=== PATIENT | female | born 1985 | race Caucasian/White ===

== ENCOUNTER 2019-05-09 07:14 | Observation (INO) | payer BC, OTHER ==
[~2019-05-09] VITALS: Ht 157.5 cm; Wt 68.0 kg
[2019-05-09] VITALS (11 sets, daily range): BP systolic 102–115; BP diastolic 63–75
[~2019-05-09 07:14] MED LIST: NUVA RING
--- NOTE | 2019-05-09 07:18 | ER Report ---
History and Physical Time Seen By MD: 07:14 HPI/ROS CHIEF COMPLAINT: Left-sided abdominal pain HISTORY OF PRESENT ILLNESS: Patient is a 33-year-old female here with complaints of left-sided abdominal pain, nausea, vomiting, diarrhea since last night at approximately 2000 hrs. Patient reports that she has been unable to keep down food or fluids this morning. Describes worsening pain especially in the left abdomen in the upper and lower quadrants. Patient does report having history of an ectopic , 2 C-sections but denies other abdominal surgeries. Patient is afebrile, hemodynamically stable at time of evaluation. REVIEW OF SYSTEMS: Constitutional: No fever, no chills. Eyes: No discharge. ENT: No sore throat. Cardiovascular: No chest pain, no palpitations. Respiratory: No cough, no shortness of breath. Gastrointestinal: + Left sided abdominal pain, + nausea and vomiting. Genitourinary: No hematuria. Musculoskeletal: No back pain. Skin: No rashes. Neurological: No headache. Allergies: Coded Allergies: No Known Drug Allergies (Verified , 04/30/10) Home Meds Reported Medications [Nuva Ring] No Conflict Check, 0 Refills 04/30/10 Hx Substance Use Disorder: No Hx Alcohol Use: Yes (OCC) Constitutional Vital Sign - Last 24 Hours 05/09/19 07:17 Temp 97.8 Pulse 79 Resp 16 B/P (MAP) 113/74 Pulse Ox 95 O2 Delivery Room Air Physical Exam General Appearance: The patient is alert, has no immediate need for airway protection and no signs of toxicity. Uncomfortable appearing Eyes: Pupils equal and round no pallor or injection. ENT, Mouth: Mucous membranes are moist. Respiratory: There are no retractions, lungs are clear to auscultation. Cardiovascular: Regular rate and rhythm. Gastrointestinal: Abdomen is soft. Tender in the left upper and left lower quadrants, no rebound or guarding Neurological: No focal neurological deficits, cranial nerves intact Skin: Warm and dry, no rashes. Musculoskeletal: Neck is supple non tender. Extremities are nontender, nonswollen and have full range of motion. DIFFERENTIAL DIAGNOSIS: After history and physical exam differential diagnosis was considered for abdominal pain including but not limited to appendicitis, cholecystitis, gastritis and urinary tract infection. Medical Decision Making Data Points Result Diagram: 05/09/19 0725 05/09/19 0725 Laboratory Hematology Test 05/09/19 07:25 White Blood Count 13.8 k/uL (4.5-11.0) H Red Blood Count 4.48 M/uL (4.17-5.56) Hemoglobin 13.1 g/dL (12.0-16.0) Hematocrit 38.3 % (34.0-47.0) Mean Corpuscular Volume 85.6 fL (80.0-96.0) Mean Corpuscular Hemoglobin 29.3 pg (26.0-33.0) Mean Corpuscular Hemoglobin Concent 34.2 g/dL (32.0-36.0) Red Cell Distribution Width 14.4 % (11.5-14.5) Platelet Count 286 K/uL (150-450) Mean Platelet Volume 7.7 fL (7.2-11.1) Neutrophils (%) (Auto) 83.9 % (39.4-72.5) H Lymphocytes (%) (Auto) 11.9 % (17.6-49.6) L Monocytes (%) (Auto) 4.0 % (4.1-12.4) L Eosinophils (%) (Auto) 0.0 % (0.4-6.7) L Basophils (%) (Auto) 0.2 % (0.3-1.4) L Nucleated RBC Relative Count (auto) 0.0 /100WBC Neutrophils # (Auto) 11.6 K/uL (2.0-7.4) H Lymphocytes # (Auto) 1.6 K/uL (1.3-3.6) Monocytes # (Auto) 0.6 K/uL (0.3-1.0) Eosinophils # (Auto) 0.0 K/uL (0.0-0.5) Basophils # (Auto) 0.0 K/uL (0.0-0.1) Nucleated RBC Absolute Count (auto) 0.01 K/uL Chemistry Test 05/09/19 07:25 Sodium Level 133 mmol/L (137-145) Potassium Level 4.1 mmol/L (3.5-5.0) Chloride Level 99 mmol/L (98-107) Carbon Dioxide Level 22 mmol/L (22-31) Blood Urea Nitrogen 11 mg/dl (7-18) Creatinine 0.70 mg/dl (0.52-1.04) Glomerular Filtration Rate Calc > 60.0 Random Glucose 118 mg/dl (75-110) Calcium Level 9.0 mg/dl (8.4-10.2) Total Bilirubin 0.6 mg/dl (0.2-1.3) Aspartate Amino Transf (AST/SGOT) 25 U/L (0-35) Alanine Aminotransferase (ALT/SGPT) 29 U/L (0-56) Alkaline Phosphatase 153 U/L (0-126) Total Protein 7.6 g/dl (6.3-8.2) Albumin 4.4 g/dl (3.5-5.0) Lipase 112 U/L (23-300) Human Chorionic Gonadotropin, Qual Negative (NEGATIVE) EKG/Imaging Imaging PATIENT NAME: Jahaira Sebastian : 1985 MR: [id number] V: [id number] EXAM DATE: ORDERING PHYSICIAN: DARIEL WIN TECHNOLOGIST: Location: [facility] Patient: Jahaira Sebastian : 1985 Visit/Account:[id number] Date of Sevice: 05/09/2019 CT ABDOMEN PELVIS W/ CON HISTORY:left sided abd pain TECHNIQUE: CT abdomen and pelvis with intravenous contrast. Contiguous axial images of the abdomen and pelvis was performed from the lung bases to the symphysis pubis. One of the following dose optimization techniques was utilized in the performance of this exam: Automated exposure control; adjustment of the mA and/or kV according to the patient's size; or use of an iterative reconstruction technique. Specific details can be referenced in the facility's radiology CT exam operational policy. CONTRAST: 75 cc of Isovue-370 COMPARISON: None. FINDINGS: Visualized lung bases: Negative. Hepatobiliary: 8mm hypodensity segment 8 of the liver image 25 may represent a small cyst or hemangioma but is too small to characterize. There is fatty infiltration of the liver. Spleen: Negative. Adrenals: Negative. Kidneys/: Negative. Pancreas: Negative. GI: Appendix is dilated measures 11 mm with mild periappendiceal inflammatory changes suggesting appendicitis. No definitive rupture. Radiopaque appendicolith is noted in the orifice of the appendix. Small amount of fluid adjacent to the cecum is noted and there is trace free fluid in the deep pelvis. Vessels/spaces/nodes: Negative. Bones/soft tissues: Negative. IMPRESSION: 1. Acute appendicitis without evidence for rupture. Results were called to DARIEL WIN at 05/09/2019 8:47 AM. Report Dictated By: Colton Lentz MD at 05/09/2019 8:39 AM Report E-Signed By: Colton Lentz MD at 05/09/2019 8:47 AM WSN:[id number] ED Course/Re-evaluation ED Course Patient is a 33-year-old female here with complaints of left upper and left lower quadrant abdominal pain. Patient reports that symptom onset was approximately 1999 last night with associated nausea, vomiting, diarrhea. Patient denies other medical problems or taking other medications. CT imaging was consistent with appendicitis, patient did have a leukocytosis. Patient was given IV fluids, analgesics with significant improvement in symptoms. I discussed the patient with Dr. Fong with surgery. Patient was stable at time of admission. Decision to Disposition Date: May 09, 2019 Decision to Disposition Time: 09:04 Depart Departure Latest Vital Signs Vital Signs Date Time Temp Pulse Resp B/P (MAP) Pulse Ox O2 Delivery O2 Flow Rate FiO2 05/09/19 07:17 97.8 79 16 113/74 95 Room Air Impression: Primary Impression: Appendicitis Condition: Improved Disposition: Admitted from ER Referrals: KIP MANDUJANO CNM (PCP) DARIEL WIN DO May 09, 2019 07:18
[2019-05-09] MEDS ORDERED: NS(*) 0.9% 1000 ML BAG 1,000 ML IV ONE (07:34)
[2019-05-09] MEDS ORDERED: ONDANSETRON 4 MG/2 ML VIAL IVP ONE ×2 (07:35→08:45)
[2019-05-09] MEDS ORDERED: fentaNYL CITR 100 MCG/2 ML AMP IVP ONE ×2 (07:35→08:55)
[2019-05-09 07:42] LABS: PLATELET COUNT, AUTOMATED 286 K/uL (150-450)
[2019-05-09] MEDS ORDERED: IOPAMIDOL 76% 100 ML INFUS BTL 100 ML ONE (08:11)
--- NOTE | 2019-05-09 08:55 | RADIOLOGY IMAGING REPORT ---
[place] [facility] [place] Jahaira Sebastian : 1985 MR: [id number] V: [id number] EXAM DATE: ORDERING PHYSICIAN: DARIEL WIN TECHNOLOG[place]: [place] [facility] [place]: [place]aira [place] : 1985 Visit/Account:[id number] Date of Sevice: 05/09/2019 CT ABDOMEN PELVIS W/ CON HISTORY:left sided abd pain TECHNIQUE: CT abdomen and pelvis with intravenous contrast. Contiguous axial images of the abdomen and pelvis was performed from the lung bases to the symphysis pubis. One of the following dose optimization techniques was utilized in the performance of this exam: Autom ated exposure control; adjustment of the mA and/or kV according to the patient's size; or use of an i terative reconstruction technique. Specific details can be referenced in the facility's radiology C T exam operational policy. CONTRAST: 75 cc of Isovue-370 COMPARISON: None. FINDINGS: Visualized lung bases: Negative. Hepatobiliary: 8mm hypodensity segment 8 of the liver image 25 may represent a small cyst or hemangi corona but is too small to characterize. There is fatty infiltration of the liver. Spleen: Negative. Adrenals: Negative. Kidneys/: Negative. Pancreas: Negative. GI: Appendix is dilated measures 11 mm with mild periappendiceal inflammatory changes suggesting vicente endicitis. No definitive rupture. Radiopaque appendicolith is noted in the orifice of the appendix. S mall amount of fluid adjacent to the cecum is noted and there is trace free fluid in the deep pelvis. Vessels/spaces/nodes: Negative. Bones/soft tissues: Negative. IMPRESSION: 1. Acute appendicitis without evidence for rupture. Results were called to DARIEL WIN at 05/09/2019 8:47 AM. Report Dictated By: Colton Lentz MD at 05/09/2019 8:39 AM Report E-Signed By: Colton Lentz MD at 05/09/2019 8:47 AM WSN:[id number]
--- NOTE | 2019-05-09 09:40 | Gen Surgery H&P BLANK ---
GENERAL SURGERY H&P BLANK CC: ABD pain HPI: 33 yo female with 12 hour hx RLQ abd pain. Pain is constant and severe. + NV. CT reveals acute appendicitis. PMH: negative PSH: C section MEDS: noted NKDA PE: AAOX$. NAD. Chest CTA.RRR. ABD tender RLQ with + peritoneal s/s. LABS: WBC elevated, HCG negative A/P: Acute appendicitis. Pt recommended to undergo laparoscopic, possible open, appendectomy. Proc, risks, benefits discussed with pt at bedside. She understands risk of bleeding, perforation, damage to viscera, postoperative abscess, need for secondary intervention, cardiopulm complication. All questions answered and informed consent signed. Venous Thromboembolism VTE Risk Physician Assess for VTE Risk: Yes Patient's VTE Risk: Low VTE Diagnostic Test 2 Days Prior to Admit: No Antithrombotics Is Pt On Any Antithrombotics?: No CIARA MOTA MD May 09, 2019 09:40
[2019-05-09] MEDS ORDERED: HYDROMORPHONE HCL 1 MG/ML SYRINGE IVP ONE (10:15)
[2019-05-09] MEDS ORDERED: METOCLOPRAMIDE 10 MG/2 ML SDV IVP ONE (10:15)
[2019-05-09] MEDS ORDERED: LR(*) 1000 ML BAG 1,000 ML IV PRN (10:30)
[2019-05-09] MEDS ORDERED: MORPHINE 4 MG/ML SDV IVP PRN (10:30)
[2019-05-09] MEDS ORDERED: PIPERACILLIN/TAZO*3.375GM VIAL 3.375 GM in NS(*) 0.9% 100 ML MINI-BAG 100 ML IVPB ONE (10:30)
[2019-05-09] MEDS ORDERED: PREN-127 PO (10:41)
[2019-05-09] MEDS ORDERED: FAMOTIDINE 20 MG TAB PO ONE (11:40)
[2019-05-09] MEDS: ONDANSETRON 4 MG/2 ML VIAL IVP PRN ×2 (12:01→18:09)
[2019-05-09] MEDS: MORPHINE 4 MG/ML SDV IVP PRN ×2 (15:58→18:09)
[2019-05-09] MEDS ORDERED: NORMOSOL R SOLN(*) 1000 ML BAG 1,000 ML IV ONE (16:30)
[2019-05-09] MEDS ORDERED: PIPERACILLIN/TAZO*3.375GM VIAL 3.375 GM in NS(*) 0.9% 100 ML MINI-BAG 100 ML IVPB SCH (16:30)
[2019-05-09] MEDS: PIPERACILLIN/TAZO*3.375GM VIAL 3.375 GM in NS(*) 0.9% 100 ML MINI-BAG 100 ML IVPB SCH ×2 (16:32→22:16)
[2019-05-09] MEDS ORDERED: fentaNYL CITR 250 MCG/5 ML AMP ONE (17:34)
[2019-05-09] MEDS ORDERED: LIDOCAINE 2% IV 100 MG/5ML SYR ONE (17:35)
[2019-05-09] MEDS ORDERED: PROPOFOL EMUL(*) 10MG/ML 20 ML 20 ML ONE (17:35)
[2019-05-09] MEDS ORDERED: ROCURONIUM BR 10 MG/ML 5 ML SY 5 ML ONE (17:36)
[2019-05-09] MEDS ORDERED: BUPIVACAIN 0.25% INJ 50ML VIAL ONE (19:03)
[2019-05-09] MEDS ORDERED: DEXAMETHASONE SOD 4 MG/ML VIAL ONE (19:20)
[2019-05-09] MEDS ORDERED: ONDANSETRON 4 MG/2 ML VIAL ONE (19:21)
[2019-05-09] MEDS ORDERED: fentaNYL CITR 100 MCG/2 ML AMP ONE ×2 (19:57→20:36)
[2019-05-09] MEDS ORDERED: SUGAMMADEX SOD 200 MG/2 ML SDV ONE (19:58)
--- NOTE | 2019-05-09 20:00 | Antimicrobial Stewardship ---
Antimicrobial Stewardship Empiricly appropriate: Yes (On Zosyn for appendicitis) Renal/Hepatic dosing: Yes Reviewed for Drug Interaction: Yes Monitored for Toxicities: Yes Comment Appendectomy this afternoon. Determine cumulative duration: individualized WILIAM POLLACK May 09, 2019 20:00
--- NOTE | 2019-05-09 20:41 | Post Operative Progress Note ---
Post Operative Progress Note Date: May 09, 2019 Time: 20:30 Surgeon: Ciara Fong MD Assignment Editor: Akil Montague RN Anesthesia: GETA Pre-Op Diagnosis: acute appendicitis Post-Op Diagnosis: same Findings: acute suppurative appendicitis, retrocecal Procedure(s): laparoscopic appendectomy Specimen Removed:(May be N/A): appendix Complications: none Total Tourniquet Time: NA Splint: NA Fluids: see anesthesia record Estimated Blood Loss: < 50 ml Date OP Note Dictated: May 09, 2019 Time OP Note Dictated: 20:32 (Dict #[id number]) CIARA FONG MD May 09, 2019 20:41
[2019-05-09] MEDS ORDERED: KCL/D1/2NS 20 MEQ 1000 ML 1,000 ML IV SCH (20:45)
[2019-05-09] MEDS ORDERED: ACETAMINOPHEN 500 MG TAB PO PRN (20:45)
[2019-05-09] MEDS ORDERED: ACETAMINOPHEN(*)1000 MG/100 ML 100 ML IVPB ONE (20:53)
[2019-05-09] MEDS ORDERED: NS(*) 0.9% 250 ML BAG 250 ML ONE (22:07)
[2019-05-09] MEDS: APAP/HYDROCODONE 325/5 TAB PO PRN (23:08)
[2019-05-10] VITALS: BP 96/59
[2019-05-10 00:30] VITALS: BP 122/113
[2019-05-10 01:00] VITALS: BP 105/67
[2019-05-10 02:00] VITALS: BP 94/60
[2019-05-10] MEDS: MORPHINE 4 MG/ML SDV IVP PRN (03:46)
[2019-05-10 03:52] VITALS: BP 105/67
[2019-05-10] MEDS: PIPERACILLIN/TAZO*3.375GM VIAL 3.375 GM in NS(*) 0.9% 100 ML MINI-BAG 100 ML IVPB SCH ×2 (03:58→10:19)
[2019-05-10] MEDS: APAP/HYDROCODONE 325/5 TAB PO PRN ×2 (05:33→11:48)
[2019-05-10 07:22] VITALS: BP 99/72
--- NOTE | 2019-05-10 08:02 | OPERATIVE REPORT 1 ---
EVENT DATE: May 09, 2019 SURGEON: Florence Campos MD ANESTHESIOLOGIST: Les Monroy MD ANESTHESIA: General endotracheal. PREOPERATIVE DIAGNOSIS Acute appendicitis. POSTOPERATIVE DIAGNOSIS Acute appendicitis. PROCEDURE PERFORMED Laparoscopic appendectomy, wound class III. INDICATIONS FOR OPERATION This patient is a 33-year old female with clinical and radiographic evidence of acute appendicitis. She was brought to the operating room at this time for appendectomy. FINDINGS The patient had acute superlative retrocecal appendicitis. There was turbid fluid noted in the right lower quadrant and pelvis, although no ramone perforation. DESCRIPTION OF PROCEDURE On May 09, 2019, patient was brought to the operating room, placed in the supine position. Appropriate lines and monitors were placed. Patient was induced and intubated under general anesthesia without difficulty. She was then prepped and draped in the usual sterile manner. Pneumoperitoneum was established at the infraumbilical position. The skin subcutaneous and fascia tissues were divided under direct vision. The peritoneum was entered without difficulty. The 10 mm Batista trocar was placed without difficulty. Pneumoperitoneum was established. Under direct vision, two additional trocars were placed, a 5 mm along the lower midline and a 12 mm in the right lower quadrant. The patient at this point was placed in the Trendelenburg position. The turbid fluid was evacuated from the abdominal and pelvic cavity. The appendix was mobilized from its position using careful blunt dissection. The mesoappendix was opened immediately adjacent to the cecal base. There was marked edema as well as some inflammation at this level. Once adequate window was made in the mesoappendix, the laparoscopic stapler was inserted and the appendix was divided immediately adjacent to the cecal wall. The base was viable. The mesoappendix was then divided with a vascular load of the laparoscopic stapler. The specimen was placed in an Endo Pouch and removed from the abdominal cavity. Given the large size of the appendix, the fascial opening had to be enlarged using sharp dissection. Once this was completed, the operative field was irrigated copiously. Several Ligaclips were placed along the mesoappendix for hemostasis. The abdominal cavity was irrigated copiously and all purulent fluid was evacuated. The operative field was hemostatic. The right lower quadrant trocar site was closed with a #1 Vicryl on the Slade- Fely device. All trocars were removed under direct vision and the sites were hemostatic. Pneumoperitoneum was evacuated. The infraumbilical fascia was closed with two stay sutures. The wounds were infiltrated with a total of 40 mL, 0.25% Marcaine. The skin edges were approximated with simple interrupted 4- 0 PDS. The wound was then dressed with Mastisol, Steri-Strips and dry sterile gauze. The patient was then extubated and taken to the recovery room in stable condition. She tolerated the procedure well. Estimated blood loss was minimal. Final sponge and needle count correct x2. MTDD
--- NOTE | 2019-05-10 09:05 | General Surgery Progress Note ---
Subjective Progress Notes Subjective feels much better after surgery than before. Physical Exam Vital Signs Date Time Temp Pulse Resp B/P (MAP) Pulse Ox O2 Delivery O2 Flow Rate FiO2 05/10/19 07:28 93 Room Air 05/10/19 07:22 98.1 81 16 99/72 (81) 05/09/19 21:45 0.5 Intake and Output 05/10/19 07:03 Intake Total 2100 ml Output Total 5 ml Balance 2095 ml Intake Oral 50 ml IV Total 2050 ml Output Estimated Blood Loss 5 ml # Voids 4 General Appearance: No Acute Distress Cardiovascular: Other (reg rate) GI: Other (abd soft) Result Diagram: 05/09/1972405/09/19724 Assessment and Plan Problems: (1) Appendicitis Status: Acute Assessment & Plan: 05/10/19: s/p lap appy. doing well. adat. home today. Exam Sepsis Risk: No Definite Risk SRAVANTHI CORCORAN May 10, 2019 09:05
[2019-05-10] MEDS ORDERED: TRAM-420 PO (12:47)
[2019-05-10 15:18] VITALS: Ht 157.5 cm; Wt 68.0 kg
== END 2019-05-10 13:36 | disposition home or self-care (01) ==
LOC: ER 07:23 → MED 10:40 → INTOOBSV 10:40
PROVIDERS: ADMIT Surgery; ATTEND Surgery
DX: K35.80 Unspecified acute appendicitis (principal); R19.7 Diarrhea, unspecified
CPT/HCPCS: 36416; 44970; 74177; 81001; 82948; 83690; 84703; 85025; 88304; 96361; 96365; 96375; 96376; 99284; G0378; J0131; J1100; J1170; J2001; J2270; J2405; J2543; J2704; J2765; J3010; J3490; J7030; J7050; J7120; Q9967; 82040; 82247; 82310; 82374; 82435; 82565; 82947; 84075; 84132; 84155; 84295; 84450; 84460; 84520